=== PATIENT | female | born 1950 | race Caucasian/White ===

== ENCOUNTER 2018-03-23 10:30 | Outpatient (RCR) | payer MEDICARE, SELFPAY | END 2018-05-28 09:42 | LOC: SP 10:30 | PROVIDERS: PCP Family Medicine; Visit Provider Otolaryngology | DX: R49.0 Dysphonia (principal); J04.0 Acute laryngitis; R49.1 Aphonia | CPT/HCPCS: 92507; 92520; 92524 ==

== ENCOUNTER 2019-01-31 00:23 | Observation (INO) | payer MEDICARE, SELFPAY ==
[2019-01-31] VITALS (7 sets, daily range): BP systolic 115–146; BP diastolic 66–94; PULSE 56–67; RESP 14–19; TEMP 36.3–36.9; O2SAT 98–100; BMI 21.9
--- NOTE | 2019-01-31 00:34 | DI.CT.S_ITS ---
PROCEDURE: CT HEAD/BRAIN WO CON INDICATIONS: neurolgic symptoms, dizzy, ataxia TECHNIQUE: Noncontrast 4.5 mm thick angled axial sections acquired from the foramen magnum to the vertex, with coronal and sagittal reformats. For radiation dose reduction, the following was used: automated exposure control, adjustment of mA and/or kV according to patient size. COMPARISON: [facility], MR, BRAIN WITHOUT CONTRAST, 11/29/2009, 10:01. FINDINGS: Image quality: Excellent. CSF spaces: Basal cisterns are patent. No extra-axial fluid collections. The ventricles are symmetric in size and shape. Brain: No intracranial bleeds or masses. There is mild cerebral volume loss for age, with resultant ventricular and sulcal prominence. There are moderate periventricular and deep white matter chronic small vessel ischemic changes. There is intracranial internal carotid artery atherosclerosis. Skull and face: Calvarium and visualized facial bones appear intact, without suspicious lesions. 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 Sinuses: Visualized sinuses and mastoids are clear. IMPRESSION: No acute intracranial disease process. Dictated by: Dinorah Mcconnell MD, PhD on 01/31/2019 at 7:15 Approved by: Dinorah Mcconnell MD, PhD on 01/31/2019 at 7:17
[2019-01-31] MEDS: SODIUM CHLORIDE 0.9% 1,000 ML 150 ML IV (00:45)
--- NOTE | 2019-01-31 00:51 | ED_ITS ---
HPI - Dizziness General Chief Complaint: Nausea/Vomiting/Diarrhea Stated Complaint: vertigo nausea vomiting Time Seen by Provider: 01/31/19 00:26 Source: patient and family Mode of arrival: ambulatory Limitations: no limitations History of Present Illness HPI Narrative: 68-year-old female nonsmoker presents with her for evaluation of dizziness which is largely resolved. The patient was doing laundry earlier and had a sudden onset severe dizziness in which she kept stating to her that she was falling, she states that things were spinning and she was very unsteady. She was quite nauseous and had a few episodes of vomiting. She does have an episode of BPPV in her past which was apparently fixed with the Otterbein-Hallpike maneuver. She denies fever or chills. She has no reported injury and denies MARCIAL or neck pain. She has no other neurologic symptoms. Her dizziness now is more described as lightheadedness. Patient was initially seen by the paramedics on [facility] and had a normal 12 lead EKG. Her exam was non focal and symptoms improved and nearly resolved with zofran and phenergan. MD complaint: dizziness and lightheadedness Onset (ago): hour(s) Timing: sudden onset Description: sense of movement, room spinning and lightheadedness History of similar episodes: Yes History of trauma: No Severity: moderate Relieving factors: remaining still and medication Exacerbating factors: movement and position Associated symptoms: nausea and vomiting Related Data Home Medications Medication Instructions Recorded Confirmed bupropion HCl 300 mg PO QPM 01/31/19 01/31/19 famotidine [Pepcid] 20 mg PO BEDTIME 01/31/19 01/31/19 folic acid 2 mg PO DAILY 01/31/19 01/31/19 levothyroxine 100 mcg PO DAILY 01/31/19 01/31/19 progesterone micronized 100 mg PO QPM 01/31/19 01/31/19 Allergies Allergy/AdvReac Type Severity Reaction Status Date / Time Penicillins Allergy Verified 01/31/19 00:33 Review of Systems Constitutional Denies chills, Denies fever(s), Denies lethargy and Denies weakness Eyes Denies change in vision, Denies eye discharge, Denies irritation and Denies loss of vision ENT Ears, Nose, Mouth, and Throat: Denies change in voice, Reports vertigo, Reports dizziness, Denies neck pain and Denies sore throat Cardiovascular Denies chest pain, Denies irregular heart rhythm, Reports lightheadedness, Denies palpitations, Denies dyspnea, Denies dyspnea on exertion and Denies orthopnea Respiratory Denies cough, Denies dyspnea, Denies dyspnea on exertion and Denies wheezing Gastrointestinal Gastrointestinal: Denies abdominal pain, Denies change in bowel habits, Denies diarrhea, Denies nausea and Denies vomiting Genitourinary Denies hematuria, Denies flank pain, Denies urinary incontinence and Denies urinary urgency Musculoskeletal Denies neck pain Integumentary/Breasts Denies pruritus, Denies erythema, Denies rash and Denies wounds Neurologic Denies confusion, Reports vertigo, Reports dizziness, Denies loss of vision and Denies weakness Psychiatric Denies anxiety, Denies confusion, Denies depression, Denies homicidal ideation and Denies suicidal ideation Endocrine Denies palpitations Hematologic/Lymphatic Denies easy bruising Allergic/Immunologic Denies wheezing PFSH Social History Smoking Status: Never smoker Social History Smoking Status: Never smoker Exam Narrative Exam Narrative: GENERAL: 68-year-old female appears stated age, she does not seem well, visibly fatigued and not at her baseline. A&O x3, GCS 15 HEAD: Atraumatic. Normocephalic. No temporal or scalp tenderness. EYES: Pupils equal round and reactive. Extraocular motions intact. No scleral icterus. No injection or drainage. ENT: Nose without bleeding, purulent drainage or septal hematoma. Throat without erythema, tonsillar hypertrophy or exudate. Uvula midline. Airway patent. NECK: Trachea midline. No JVD or lymphadenopathy. Supple, nontender, no meningeal signs. CARDIOVASCULAR: Regular rate and rhythm without murmurs, gallops, or rubs. RESPIRATORY: Clear to auscultation. Breath sounds equal bilaterally. No wheezes, rales, or rhonchi. GASTROINTESTINAL: Abdomen soft, non-tender, nondistended. No hepato- splenomegaly, or palpable masses. No guarding. EXTREMITIES: No clubbing, cyanosis, or edema. No joint tenderness, effusion, or edema noted. BACK: Nontender without deformity or crepitance. No flank tenderness. NEURO: AOx3. SKIN: No rash or erythema. Initial Vital Signs Initial Vital Signs: Vital Signs Temperature 97.6 F 01/31/19 00:33 Pulse Rate 61 01/31/19 00:33 Respiratory Rate 14 01/31/19 00:33 Blood Pressure 146/94 H 01/31/19 00:33 Pulse Oximetry 100 01/31/19 00:33 Scores NIH Stroke Scale Level of Conciousness: Not alert, but arousable by minor stim to obey, answer or respond Ask month/age: Answers both questions correctly. Open/close eyes, close hand: Performs both tasks correctly Best gaze horizontal: Normal Visual leija: No visual loss Facial palsy: Normal symetrical movement Left arm drift: No drift for full 10 sec Right arm drift: No drift for full 10 sec Left leg drift: No drift for full 10 sec Right leg drift: No drift for full 10 sec Limb ataxia: Absent Sensory on face/arms/legs: Normal, no sensory loss Best language: No aphasia, normal Dysarthria: Normal Extinction or inattention: No abnormality Total NIH Stroke scale score: 1 Course Orders Ordered: ED Orders 01/31/19 00:32 Basic Metabolic Panel Stat Ethanol (ETOH) Stat Troponin I Stat 01/31/19 00:34 CT head/brain wo con Stat EKG-12 Lead Stat 01/31/19 00:51 Complete Blood Count AUTO DIFF Stat Partial Thromboplastin Time Stat Prothrombin Time INR Stat 01/31/19 01:31 Urine Drug Screen, Rapid Stat Urine Microscopic Stat Sodium Chloride (Normal Saline 0.9%) 1,000 mls @ 150 mls/hr IV CONT LY Last Admin: 01/31/19 00:45 Dose: 150 mls/hr Discontinued Medications Aspirin (Aspirin Chew) 324 mg PO NOW ONE Stop: 01/31/19 02:39 Last Admin: 01/31/19 02:45 Dose: 324 mg Consultations Consultation #1: hospitalist happy to accept Vital Signs - 8 hr 01/31/19 00:33 01/31/19 02:10 01/31/19 03:00 Temperature 97.6 F Pulse Rate 61 65 Pulse Rate [Orthostatic Lying] 59 L Pulse Rate [Orthostatic Sitting] 66 Pulse Rate [Orthostatic Standing] 58 L Respiratory Rate 14 17 Blood Pressure 146/94 H Blood Pressure [Left Arm] 125/75 Blood Pressure [Orthostatic Lying] 132/74 Blood Pressure [Orthostatic Sitting] 133/75 Blood Pressure [Orthostatic Standing] 123/67 Pulse Oximetry 100 100 MDM - Dizziness Lab Data Result diagrams: 01/31/19 00:51 01/31/19 00:32 Lab Results 01/31/19 01/31/19 01/31/19 Range/Units 00:32 00:32 00:51 WBC 8.9 (4.5-11.0) X10^3/uL RBC 4.22 (4.0-5.2) X10^6/uL Hgb 11.3 L (12.0-16.0) g/dL Hct 34.5 L (36-46) % MCV 81.7 (80-100) fL MCH 26.7 (26-34) PG MCHC 32.6 (30-36) % RDW 17.7 H (11.6-14.8) % Plt Count 405 H (150-400) X10^3/uL Neut % (Auto) 82.3 H (50-75) % Lymph % (Auto) 13.0 L (25-40) % [place] % (Auto) 3.7 (3-14) % Eos % (Auto) 0.6 L (2-4) % Baso % (Auto) 0.4 (0-2) % Neut # (Auto) 7300 H (8065-0123) /uL Lymph # (Auto) 1200 (8349-5227) /uL [place] # (Auto) 300 (0-900) /uL Eos # (Auto) 100 (0-450) /uL Baso # (Auto) 0 (0-100) /uL PT (10.1-12.7) SECONDS INR (0.9-1.3) APTT (26.4-36.2) SECONDS Sodium 138 (137-145) mmol/L Potassium 4.0 (3.4-5.1) mmol/L Chloride 101 (98-107) mmol/L Carbon Dioxide 26 (22-32) mmol/L BUN 21 H (7-17) mg/dL Creatinine 0.90 (0.52-1.04) mg/dL Estimated GFR > 60.0 (>60) mL/min BUN/Creatinine Ratio 23.3 H (6-22) Glucose 113 H (80-110) mg/dL Calcium 9.3 (8.4-10.2) mg/dL Troponin I < 0.012 (0.01-0.034) ng/mL Urine RBC (0-5/HPF) Urine WBC (0-5/HPF) Ur Squamous Epith Cells (0-5/HPF) Urine Bacteria (None) Ur Culture Indicated? Urine Opiates Screen (Negative) Ur Oxycodone Screen (Negative) Urine Methadone Screen (Negative) Ur Barbiturates Screen (Negative) U Tricyclic Antidepress (Negative) Ur Phencyclidine Scrn (Negative) Ur Amphetamines Screen (Negative) U Methamphetamines Scrn (Negative) Ur MDMA Scrn (Ecstasy) (Negative) U Benzodiazepines Scrn (Negative) Urine Cocaine Screen (Negative) U Marijuana (THC) Screen (Negative) Ethyl Alcohol < 10 mg/dL 01/31/19 01/31/19 01/31/19 Range/Units 00:51 01:31 01:31 WBC (4.5-11.0) X10^3/uL RBC (4.0-5.2) X10^6/uL Hgb (12.0-16.0) g/dL Hct (36-46) % MCV (80-100) fL MCH (26-34) PG MCHC (30-36) % RDW (11.6-14.8) % Plt Count (150-400) X10^3/uL Neut % (Auto) (50-75) % Lymph % (Auto) (25-40) % [place] % (Auto) (3-14) % Eos % (Auto) (2-4) % Baso % (Auto) (0-2) % Neut # (Auto) (3584-8407) /uL Lymph # (Auto) (4961-4786) /uL [place] # (Auto) (0-900) /uL Eos # (Auto) (0-450) /uL Baso # (Auto) (0-100) /uL PT 13.1 H (10.1-12.7) SECONDS INR 1.1 (0.9-1.3) APTT 38 H (26.4-36.2) SECONDS Sodium (137-145) mmol/L Potassium (3.4-5.1) mmol/L Chloride (98-107) mmol/L Carbon Dioxide (22-32) mmol/L BUN (7-17) mg/dL Creatinine (0.52-1.04) mg/dL Estimated GFR (>60) mL/min BUN/Creatinine Ratio (6-22) Glucose (80-110) mg/dL Calcium (8.4-10.2) mg/dL Troponin I (0.01-0.034) ng/mL Urine RBC None seen (0-5/HPF) Urine WBC 0-1/hpf (0-5/HPF) Ur Squamous Epith Cells 0-1 /hpf (0-5/HPF) Urine Bacteria None seen (None) Ur Culture Indicated? Cult not indicated Urine Opiates Screen Negative (Negative) Ur Oxycodone Screen Negative (Negative) Urine Methadone Screen Negative (Negative) Ur Barbiturates Screen Negative (Negative) U Tricyclic Antidepress Negative (Negative) Ur Phencyclidine Scrn Negative (Negative) Ur Amphetamines Screen Negative (Negative) U Methamphetamines Scrn Negative (Negative) Ur MDMA Scrn (Ecstasy) Negative (Negative) U Benzodiazepines Scrn Negative (Negative) Urine Cocaine Screen Negative (Negative) U Marijuana (THC) Screen Negative (Negative) Ethyl Alcohol mg/dL Urine Dip Bedside Urine Glucose Negative Bedside Urine Bilirubin - Negative Bedside Urine Ketone +/- 5 Urine Specific [place] 1.010 Bedside Urine Occult Blood - Negative Bedside Urine pH 7.0 Bedside Urine Protein - Negative Bedside Urine Urobilinogen - Negative Bedside Urine Nitrite - Negative Bedside Urine Leukocytes ++ 125 Esterase MDM Narrative Medical decision making narrative: Multiple etiologies of patient's dizziness considered. Initially she had what sounds like classic BPPV with severe room- spinning type vertigo which was worse with movement and improved with rest. These symptoms seemed to have improved with the use of antihistamines as administered by on scene medics. Patient denies focal findings, signs of UTI such as dysuria, frequency, or urgency. Her CT is normal and NIHSS is at baseline. HINTS exam performed and not classically demonstrating peripheral vertigo. Patient is not at her baseline and still complaining of a vague dizziness and unsteadiness despite no measureable ataxia. Patient requires hospitalization to further characterize her dizziness and rule out stroke as a cause. CTA not ordered as patient does not have evidence of large vessel occlusion and MRI is the more appropriate study. Finally, no meclizine given as she was given multiple antihistamines earlier which seemed to help and she no longer has classical peripheral vertigo Discharge Plan Departure Admit Date/Time: 01/31/19 02:38 Admit Provider: Xiang Frances
[2019-01-31 00:59] LABS: Add Manual Diff / Slide Review NO; Basophils Absolute Auto 0 /uL (0-100); Basophils Percent Auto 0.4 % (0-2); Eosinophils Absolute Auto 100 /uL (0-450); Eosinophils Percent Auto 0.6 % (2-4); Hematocrit 34.5 % (36-46); Hemoglobin 11.3 g/dL (12.0-16.0); Lymphocytes Absolute Auto 1200 /uL (1100-4500); Mean Corpuscular HGB Conc 32.6 % (30-36); Mean Corpuscular Hemoglobin 26.7 PG (26-34); Mean Corpuscular Volume 81.7 fL (80-100); Monocytes Absolute Auto 300 /uL (0-900); Monocytes Percent Auto 3.7 % (3-14); Neutrophils Absolute Auto 7300 /uL (1500-7000); Neutrophils Percent Auto 82.3 % (50-75); Platelet Count 405 X10^3/uL (150-400); Red Blood Cell Count 4.22 X10^6/uL (4.0-5.2); Red Cell Distribution Width 17.7 % (11.6-14.8); White Blood Cell Count 8.9 X10^3/uL (4.5-11.0)
[2019-01-31 01:04] LABS: INR 1.1 (0.9-1.3); Prothrombin Time 13.1 SECONDS (10.1-12.7)
[2019-01-31 01:07] LABS: PTT Partial Thromboplastin Tim 38 SECONDS (26.4-36.2)
[2019-01-31 01:09] LABS: Ethanol (ETOH) < 10 mg/dL
[2019-01-31 01:10] LABS: BUN Creatinine Ratio 23.3 (6-22); Blood Urea Nitrogen 21 mg/dL (7-17); Calcium 9.3 mg/dL (8.4-10.2); Carbon Dioxide 26 mmol/L (22-32); Chloride 101 mmol/L (98-107); Estimated Glomerular Filt Rate > 60.0 mL/min (>60); Glucose 113 mg/dL (80-110); HEMOLYSIS 22 (0-50); Sodium 138 mmol/L (137-145)
[2019-01-31 01:25] LABS: Troponin I < 0.012 ng/mL (0.01-0.034)
--- NOTE | 2019-01-31 01:41 | PC.NURSE ---
[facility] stated the she felt a little' dizzy but her lightheaded feeling was much better than earlier today when the EMT's had to help her to the restroom.
[2019-01-31 01:44] LABS: Bacteria Urine None Seen; RBC Urine None Seen (0-5/HPF)
[2019-01-31 01:49] LABS: Urine Amphetamines Negative (Negative); Urine Barbiturates Negative (Negative); Urine Benzodiazepines Negative (Negative); Urine Cocaine Negative (Negative); Urine MDMA Negative (Negative); Urine Methadone Negative (Negative); Urine Methamphetamines Negative (Negative); Urine Morphine/Opi cutoff 2000 Negative (Negative); Urine Oxycodone Negative (Negative); Urine Phencyclidine Negative (Negative); Urine Tetrahydrocannabinol Negative (Negative); Urine Tricyclic Antidepressant Negative (Negative)
[2019-01-31 01:53] LABS: Culture Indicated Urine Cult Not Indicated; Squamous Epithelial Cell Urine 0-1 /HPF (0-5/HPF); WBC Urine 0-1/HPF (0-5/HPF)
[2019-01-31] MEDS: ASPIRIN 81 MG TAB 324 MG PO (02:45)
--- NOTE | 2019-01-31 03:26 | DI.MRI.S_ITS ---
PROCEDURE: MR STROKE Pre- and post-contrast brain MRI, non-contrast brain MR angiogram, pre- and postcontrast neck MR angiogram INDICATIONS: Dizziness, disequilibrium, rule out TIA TECHNIQUE: Brain: Noncontrast axial T1 spin echo, axial T2 fast spin echo, sagittal and axial FLAIR, coronal T2 fast spin echo, axial gradient echo, axial diffusion and ADC through the brain. After the administration of contrast, axial 3D VIBE of the cranial vasculature and brain. Brain MRA: Non-contrast 3-D time of flight MR angiogram, with multiple vvnlhwq-szngevpqx-qzrswxkvvj (MIP) reformats performed. Neck MRA: Axial and sagittal TruFISP through the neck. Coronal dynamic MR angiogram during administration of contrast in the arterial and venous phases, with 3-dimenstional tmfikki-zfhvsdlwz-xlqycrkcgd (MIP) reformats constructed from subtraction images. COMPARISON: [facility], MR, BRAIN WITHOUT CONTRAST, 11/29/2009, 10:01. [facility], CT, CT HEAD/BRAIN WO CON, 01/31/2019, 1:08. FINDINGS: Image quality: Excellent. BRAIN: CSF spaces: Ventricles are normal in size and shape. Basal cisterns are patent. No extra-axial fluid collections. Brain: No intracranial bleeds or mass effects. Bo-white matter interface is normal. Diffusion weighted images show no acute ischemic insults. Chronic, small, lacunar infarct noted in the left cerebellar hemisphere. There are moderate periventricular and subcortical white matter chronic much lesser ischemic changes. There is mild, diffuse removal and loss. Brainstem appears normal. Normal intravascular flow voids are present. No abnormal intracranial enhancement. Skull and face: Calvarial marrow signal is normal. Orbits appear normal. Sinuses: Sinuses and mastoids are clear. BRAIN MR ANGIOGRAM: Anterior circulation: Intracranial internal carotid arteries are normal in size and enhancement. The flow within the paired anterior cerebral arteries is normal and symmetric. The flow within the middle cerebral arteries is normal and symmetric. The anterior communicating artery is seen. No stenoses, occlusions, or aneurysms. Posterior circulation: The visualized portions of the vertebral arteries demonstrate normal caliber, and join to form a normal appearing basilar artery. The flow within the posterior cerebral arteries is normal and symmetric. 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 No stenoses, occlusions, or aneurysms. NECK MR ANGIOGRAM: Carotids: Great vessels demonstrate a conventional anatomy as they arise from the aortic arch. The origins of the common carotid arteries appear patent. The calibers and courses of both common carotid arteries are normal. The bifurcation regions appear normal bilaterally. The internal carotid arteries demonstrate normal course and caliber. Posterior circulation: The origins of the vertebral arteries appear patent. More superior portions of both vertebral arteries demonstrate normal course and caliber, and join to form a normal appearing basilar artery. Miscellaneous: Subclavian arteries appear patent. Pre-contrast images through the neck show no soft tissue abnormalities. IMPRESSION: BRAIN MRI: 1. No acute intracranial disease process. 2. No areas of acute infarction. 3. Chronic, small left cerebellar hemisphere lacunar infarct. 4. Mild, diffuse cerebral volume loss. 5. Moderate periventricular and subcortical white matter chronic microvascular ischemic changes. 6. No abnormal intracranial mass or suspicious postcontrast enhancement. BRAIN MR ANGIOGRAM: Negative examination. NECK MR ANGIOGRAM: Negative examination. Dictated by: Dinorah Mcconnell MD, PhD on 01/31/2019 at 12:01 Approved by: Dinorah Mcconnell MD, PhD on 01/31/2019 at 12:08
--- NOTE | 2019-01-31 03:36 | DI.ECHO.S_ITS ---
[facility]---------+ [facility] +---------+ : : [address] [place] : : : : [id number] : : : : Phone: [phone] Echocardiogram Report + + :Name: GABI LUNA Study Date: 01/31/2019 Height: 63 in : :[facility] Weight: 120 lb : : Gender: Female BSA: 1.6 m2 : :: 1950 Age: 68 yrs BP: 135/78 mmHg: :Reason For Study: TIA : : Performed By: Ivett Estrada : :Referring: VANESSA BLACK : + + Interpretation Summary Injection of contrast documented no interatrial shunt. Left ventricular wall thickness is at the upper limits of normal. There are no obvious focal wall motion abnormalities noted but poor endocardial definition reduces the sensitivity for the detection of such. The right ventricle grossly appears normal in size with probable normal systolic function. The right ventricular systolic pressure is estimated to be at least 24 mmHg based on an estimated right atrial pressure of 3 mm Hg. Both atria are normal in size. No hemodynamically significant valvular abnormalities. No prior echo for comparison. Procedure: A two-dimensional transthoracic echocardiogram with color flow and Doppler was performed. The study quality was technically adequate. There is no prior echocardiogram noted for this patient. The patient was in normal sinus rhythm during the exam. Left Ventricle: Left ventricular wall thickness is at the upper limits of normal. The ejection fraction is estimated to be 60-65%. The left ventricular ejection fraction is normal. There are no obvious focal wall motion abnormalities noted but poor endocardial definition reduces the sensitivity for the detection of such. Diastolic parameters suggest a relaxation abnormality of the left ventricle, consistent with probable normal filling pressures. Right Ventricle: The right ventricle grossly appears normal in size with probable normal systolic function. Atria: The left atrial size is normal. Both atria are normal in size. Right atrial size is normal. Injection of contrast documented no interatrial shunt. Mitral Valve: The mitral valve leaflets are mildly calcified. There is no mitral regurgitation noted. Aortic Valve: The aortic valve is trileaflet. The aortic valve opens well. There is no aortic valve stenosis. No aortic regurgitation is present. Tricuspid Valve: The tricuspid valve leaflets are thin and pliable. There is mild tricuspid regurgitation. The right ventricular systolic pressure is estimated to be at least 24 mmHg based on an estimated right atrial pressure of 3 mm Hg. Pulmonic Valve: The pulmonic valve is not well seen, but is grossly normal. There is no pulmonic valvular regurgitation. Great Vessels: The aortic root is normal size. The dimensions of the ascending aorta are normal. The aortic arch is normal in size. The IVC is of normal diameter and collapses greater than 50% with a sniff. This suggests a low right atrial pressure of 3 mm Hg. Pericardium/ Pleura There is no pericardial effusion. There is no pleural effusion. MMode/2D Measurements & Calculations LVIDd: 3.8 cm Ao root diam: 3.4 cm LVIDs: 2.3 cm Aortic Jxn: 2.2 cm FS: 38.9 % asc Aorta Diam: 2.9 cm IVSd: 1.1 cm Ao Arch Diam (Prox Trans): 2.9 cm LVPWd: 0.82 cm LV weeks. diameter/BSA (cm/m^2): 2.4 LV sys. diameter/BSA (cm/m^2): 1.5 LA dimension: 3.3 cm RA long axis: 4.0 cm LA A2 area: 15.7 cm2 RA area: 13.3 cm2 LA A4 area: 14.4 cm2 RA vol: 37.7 ml LA length (vol): 4.3 cm RA : 24.2 ml/m2 LA vol: 44.8 ml IVC diam: 1.5 cm LA vol index: 28.8 ml/m2 RVDd major: 4.7 cm RVD1 (basal): 3.3 cm RVD2 (mid): 2.9 cm Doppler Measurements & Calculations Ao V2 max: 129.5 cm/sec MV E max susu: 75.8 cm/sec Ao V2 mean: 87.9 cm/sec MV A max susu: 91.6 cm/sec Ao max P.7 mmHg MV E/A: 0.83 Ao mean P.6 mmHg MV dec time: 0.23 sec Ao V2 VTI: 30.2 cm MV P1/2t: 68.9 msec TR max susu: 231.1 cm/sec MV P1/2t max susu: 71.9 cm/sec TR max P.4 mmHg MVA(P1/2t): 3.2 cm2 PA V2 max: 76.3 cm/sec PA V2 mean: 54.1 cm/sec PA mean P.3 mmHg PA Accel Time: 0.19 sec Electronically signed by: Tacos Bolton M.D. on Reading Physician:01/31/2019 02:48 PM
--- NOTE | 2019-01-31 03:51 | P.HP_ITS ---
History of Present Illness Date Patient Seen: 01/31/19 Time Patient Seen: 03:02 Chief complaint: vertigo nausea vomiting Narrative: Ms. Tata Mendez is a 60-year-old female patient with history significant for vertigo, hypothyroidism post thyroidectomy and rheumatoid arthritis on methotrexate who experienced a sudden onset of profound dizziness yesterday. The patient states she was doing laundry and had a sudden onset of vertigo, dizziness and sensation that she was going to fall even when laying down. The patient has had previous benign paroxysmal positional vertigo but indicates that this episode was much more pronounced and has lasted longer and is associated with nausea vomiting. The patient took a Zofran that she had but indicates she threw it. The patient was treated on [facility] receiving multiple medications including Phenergan and Zofran without resolution of her symptoms. She does indicate that the dizziness is less with her eyes closed. Patient has associated symptoms mild headache and weakness. She denies recent illness fevers or chills. She has had visual changes with prior episodes of vertigo but none with this occurrence. She denies chest pain or palpitations, shortness of breath cough for wheezing. The patient does note that she had a cardiac workup 2-3 years ago related to bradycardia and hypotension which the patient reports there were no significant findings. She has had no abdominal pain, constipation or diarrhea. She reports no come planes of urinary urgency frequency or burning and no hematuria. She does have significant rheumatoid arthritis with bilateral hand deformities and has undergone bilateral total knee replacements. The patient states she uses no assistive devices at home. Upon arrival to the emergency room patient found to be afebrile with a temperature of 97.6?, blood pressure of 125/75, heart rate of 65, respirations 17 and saturating 100% on room air. In the ER the patient had a CT completed which shows no acute bleeding moderate atrophy and no acute intracranial changes. It does note however severe right TMJ arthritis. She also had an EKG completed which reveals sinus rhythm at 63 without ectopy or block, ischemia or myocardial infarction. On laboratory analysis she has white count of 8.9, hemog lobin 11.3 and hematocrit of 34.5 and platelets of 105. Her electrolytes are within normal limits, she has a BUN of 21 and creatinine of 0.9 for an EGFR of greater than 60 a BUN creatinine ratio 23.3. A coagulation she has mildly elevated PT of 13.1 and INR 1.1 elevated PTT of 38. The patient is admitted to the hospital related to an atypical presentation of her previous existing BPPV with equivocal neurological findings and rule out TIA. Patient History Medical History (Updated 01/31/19 @ 04:16 by LINDEN Leon) Acquired hypothyroidism (Acute) Benign paroxysmal positional vertigo (Acute) Lumbar disc herniation (Acute) Rheumatoid arthritis (Acute) Surgical History (Updated 01/31/19 @ 04:02 by LINDEN Leon) H/O right breast biopsy (Acute) History of bilateral knee replacement (Acute) History of hand surgery (Acute) History of thyroidectomy (Acute) Family History (Updated 01/31/19 @ 04:04 by LINDEN Leon) Father Stroke Mother Stroke Spinal stenosis Brother Stroke Sister Anxiety and depression PTSD (post-traumatic stress disorder) Social History household members: spouse Smoking Status: Never smoker Family & Social History Safety & Behavioral: Feels Safe in Current Yes Environment Been Physically Hurt or No Threatened By a Person Tobacco & Substance use: Smoking Status Never smoker alcohol intake frequency 0-2 drinks per day Substance Use Type does not use Comment: The patient resides on [facility] in a single family home with her to whom she has been for 46 years. Her parents are both her father had a history of strokes as does her mother. She has 2 brothers 1 of which has had a stroke and the other she describes is relatively healthy. She has 1 sister with depression anxiety and PTSD. She has had no children. Smoking: The patient denies having ever smoked. Alcohol: The patient denies alcohol consumption. Substance use: The patient endorses use of CBD ointment on her hands. Advanced directives: She has advanced directives. In direct discussion with the patient she wishes to be a FULL CODE and designates her to be surrogate decision maker. Meds Home Medications Medication Instructions Recorded Confirmed Type bupropion HCl 300 mg PO QPM 01/31/19 01/31/19 History estradiol 1 patch TOPICAL WEEKLY 01/31/19 01/31/19 History famotidine [Pepcid] 20 mg PO BEDTIME 01/31/19 01/31/19 History folic acid 2 mg PO DAILY 01/31/19 01/31/19 History levothyroxine 100 mcg PO DAILY 01/31/19 01/31/19 History progesterone micronized 100 mg PO QPM 01/31/19 01/31/19 History Allergies Allergy/AdvReac Type Severity Reaction Status Date / Time Penicillins Allergy Verified 01/31/19 00:33 Review of Systems Review of Systems All systems reviewed & are unremarkable except as noted in HPI and below Exam Vital Signs (past 8 hours): - 01/31/19 00:33 01/31/19 02:10 01/31/19 03:00 Temperature 97.6 F Pulse Rate 61 65 Pulse Rate [Orthostatic Lying] 59 L Pulse Rate [Orthostatic Sitting] 66 Pulse Rate [Orthostatic Standing] 58 L Respiratory Rate 14 17 Blood Pressure 146/94 H Blood Pressure [Left Arm] 125/75 Blood Pressure [Orthostatic Lying] 132/74 Blood Pressure [Orthostatic Sitting] 133/75 Blood Pressure [Orthostatic Standing] 123/67 Pulse Oximetry 100 100 Oxygen Delivery Method Room Air Narrative Exam Narrative: GENERAL APPEARANCE: well developed, well nourished, drowsy but responsive. HEAD: Symmetrical facies, atraumatic EYES: No ptosis, pupils equal, round, reactive to light and accommodation, sclera non-icteric, extraocular movement intact with slight bilateral nystagmus, no visual field deficits. EARS: normal external structures, no ear pain NOSE: sinuses non tender to percussion, no rhinorrhea ORAL CAVITY: mucosa moist without lesions or exudate, patient has own dentition, palate normal, tongue in midline. THROAT: Posterior pharynx without erythema or exudate. NECK/THYROID: neck supple, no jugular venous distention, no carotid bruit, trachea midline. LYMPH NODES: no cervical or supraclavicular lymphadenopathy. SKIN: warm and dry, no suspicious lesions, no rashes, good turgor. HEART: regular rate and rhythm, S1-S2, 1/6 systolic murmur, no rubs or gallops, brisk capillary refill, no edema LUNGS: clear to auscultation bilaterally, no coarseness crackles or wheezing, no cough present CHEST: Symmetrical movement, no accessory muscle use, no pain to AP and lateral compression. BACK: Nontender, no back pain with straight leg raise. ABDOMEN: Soft, no distention, mild abdominal wall tenderness to palpation, no guarding or peritoneal signs, no organomegaly, active bowel tones. EXTREMITIES: moves all extremities, strength is 5/5 and symmetrical, bilateral hand deformities with Heberden's and Lisa's nodules, NEUROLOGIC: Lethargic, GCS 14, responsive to verbal stimulus and follows commands, oriented x4, neuropathy left great toe. PSYCH: alert, cognitive function intact, soft-spoken, appropriate with stable behavior Objective Labs Result Diagrams: 01/31/19 00:51 01/31/19 00:32 Labs: Laboratory Results - last 24 hr 01/31/19 01/31/19 01/31/19 00:32 00:32 00:51 WBC 8.9 RBC 4.22 Hgb 11.3 L Hct 34.5 L MCV 81.7 MCH 26.7 MCHC 32.6 RDW 17.7 H Plt Count 405 H Neut % (Auto) 82.3 H Lymph % (Auto) 13.0 L [place] % (Auto) 3.7 Eos % (Auto) 0.6 L Baso % (Auto) 0.4 Neut # (Auto) 7300 H Lymph # (Auto) 1200 [place] # (Auto) 300 Eos # (Auto) 100 Baso # (Auto) 0 PT INR APTT Sodium 138 Potassium 4.0 Chloride 101 Carbon Dioxide 26 BUN 21 H Creatinine 0.90 Estimated GFR > 60.0 BUN/Creatinine Ratio 23.3 H Glucose 113 H Calcium 9.3 Troponin I < 0.012 Urine RBC Urine WBC Ur Squamous Epith Cells Urine Bacteria Ur Culture Indicated? Urine Opiates Screen Ur Oxycodone Screen Urine Methadone Screen Ur Barbiturates Screen U Tricyclic Antidepress Ur Phencyclidine Scrn Ur Amphetamines Screen U Methamphetamines Scrn Ur MDMA Scrn (Ecstasy) U Benzodiazepines Scrn Urine Cocaine Screen U Marijuana (THC) Screen Ethyl Alcohol < 10 01/31/19 01/31/19 01/31/19 00:51 01:31 01:31 WBC RBC Hgb Hct MCV MCH MCHC RDW Plt Count Neut % (Auto) Lymph % (Auto) [place] % (Auto) Eos % (Auto) Baso % (Auto) Neut # (Auto) Lymph # (Auto) [place] # (Auto) Eos # (Auto) Baso # (Auto) PT 13.1 H INR 1.1 APTT 38 H Sodium Potassium Chloride Carbon Dioxide BUN Creatinine Estimated GFR BUN/Creatinine Ratio Glucose Calcium Troponin I Urine RBC None seen Urine WBC 0-1/hpf Ur Squamous Epith Cells 0-1 /hpf Urine Bacteria None seen Ur Culture Indicated? Cult not indicated Urine Opiates Screen Negative Ur Oxycodone Screen Negative Urine Methadone Screen Negative Ur Barbiturates Screen Negative U Tricyclic Antidepress Negative Ur Phencyclidine Scrn Negative Ur Amphetamines Screen Negative U Methamphetamines Scrn Negative Ur MDMA Scrn (Ecstasy) Negative U Benzodiazepines Scrn Negative Urine Cocaine Screen Negative U Marijuana (THC) Screen Negative Ethyl Alcohol Assessment & Plan Assessment & Plan narrative: This is a 68-year-old female patient who was admitted to the hospital to rule out TIA related to persistent severe vertigo, nausea vomiting which is a change in character from her prior history of BPPV. 1. Acute vertigo and disequilibrium, possible TIA, present on admission. -patient with history of BPPV but presentation is markedly different than previous episodes. On labs patient is mildly dehydrated. -risk factors include strong family history of cerebrovascular disease with mother father and brother having strokes, using hormone replacement therapy was tried all and progesterone but does not have diabetes and has never smoked. -HINTS evaluation with mild bilateral nystagmus, negative head and colds or vertical skew. CT scan is negative for intracranial process, severe right TMJ osteoarthritis. -patient received an aspirin 324 mg in the ER, will continue aspirin 81 mg kaylee y. -Zofran 4 mg every 6 hours as needed for nausea vomiting. -will obtain lipid panel -nursing bedside swallow evaluation, PT and OT to evaluate and treat, speech therapy to evaluate. -MR stroke protocol, prior history of cardiac workup 2-3 years ago for repored bradycardia and hypertension, echocardiogram 2. Chronic benign paroxysmal positional vertigo, active -patient takes no routine medications [place] per ED MD report. No present complaint of nausea vomiting. -patient reported symptoms of falling while lying still, complains of dizziness now. -meclizine 25 mg every 8 hours as needed for vertigo. 3. Chronic acquired hypothyroidism, active. -will continue home regimen of levothyroxine 100 mcg daily -will check TSH with reflex to T4. The patient endorses a history of BPPV however this is an atypical presentation in intensity and duration. Patient being evaluated for TIA and is admitted as an observation patient. Expected length of stay is less than 2 midnights. Time Spent With Patient Time with patient: 25 - 35 minutes Scores GCS Carl coma scale eye opening: To sound Carl coma scale verbal response: Orientated [place] coma scale motor response: Obey commands Carl coma scale total score: 14 ABCD2 Age >= 60 years: yes Initial BP. Either SBP >= 140 or DBP >= 90.: no Clinical features of the TIA: other symptoms Duration of symptoms: >= 60 minutes History of diabetes: no ABCD2 Score: 3 NIHSS Level of Conciousness: Not alert, but arousable by minor stim to obey, answer or respond Ask month/age: Answers both questions correctly. Open/close eyes, close hand: Performs both tasks correctly Best gaze horizontal: Normal Visual leija: No visual loss Facial palsy: Normal symetrical movement Left arm drift: No drift for full 10 sec Right arm drift: No drift for full 10 sec Left leg drift: No drift for full 5 sec Right leg drift: No drift for full 5 sec Limb ataxia: Absent Sensory on face/arms/legs: Normal, no sensory loss Best language: No aphasia, normal Dysarthria: Normal Extinction or inattention: No abnormality Total NIH Stroke scale score: 1
[2019-01-31] MEDS: SODIUM CHLORIDE 0.9% 1,000 ML 125 ML IV (04:17)
--- NOTE | 2019-01-31 04:36 | PC.NURSE ---
Pt arrived to unit from ED with nurse Hameed. A/o x3. Pt ambulated to restroom with slight dizziness. No complaints or pain or nausea since ED. Moderate fall risk for dizziness and weakness, bed alarm set. Oriented patient to unit and call light, pt verbalized understanding. Swallow study performed was negative.
[2019-01-31] MEDS: ONDANSETRON 4 MG/2 ML INJ IV (06:13)
[2019-01-31] MEDS: LEVOTHYROXINE 100 MCG TABLET PO (06:13)
[2019-01-31 06:19] LABS: Cholesterol 155 mg/dL (140-199); HDL Cholesterol 33 mg/dL (40-60); LDL Cholesterol Calculated 98 mg/dL (<100); Triglycerides 120 mg/dL (35-150)
[2019-01-31 06:52] LABS: TSH w/ Reflex to FT4 1.27 uIU/mL (0.47-4.68)
[2019-01-31] MEDS: ACETAMINOPHEN 325 MG TABLET 650 MG PO (09:49)
[2019-01-31] MEDS: ASPIRIN EC 81 MG TABLET PO (09:49)
[2019-01-31] MEDS: ENOXAPARIN 40 MG/0.4 ML SYRINGE SUBCUT (09:49)
--- NOTE | 2019-01-31 10:22 | PT.IPTN ---
Physical Therapy Treatment Note M3 PT-IP Subjective Start: 01/31/19 08:28 Freq: NEEDED Status: Active Protocol: Document 01/31/19 10:21 RS (Rec: 01/31/19 10:22 RS [id number]) Subjective Physical Therapy Visit Type Type Administrative Note Notes Pt going for MRI momentarily, will check back later today.
--- NOTE | 2019-01-31 10:37 | PC.NURSE ---
Day shift: Pt off AC unit for MRI. Return to AC ETA 40 minutes from now (1037).
--- NOTE | 2019-01-31 11:57 | PM.CHAP ---
visit request with patient. She is doing well by her report. She expects her fiberglass autobody repairer to visit this afternoon.
--- NOTE | 2019-01-31 12:05 | PC.NURSE ---
Day shift: Pt back on unit at approx 1145. Pt stated that she tolerated the MRI well.
--- NOTE | 2019-01-31 13:10 | P.DS_ITS ---
History of Present Illness Chief complaint: vertigo nausea vomiting Narrative: Ms. Tata Mendez is a 60-year-old female patient with history significant for vertigo, hypothyroidism post thyroidectomy and rheumatoid arthritis on methotrexate who experienced a sudden onset of profound dizziness yesterday. The patient states she was doing laundry and had a sudden onset of vertigo, dizziness and sensation that she was going to fall even when laying down. The patient has had previous benign paroxysmal positional vertigo but indicates that this episode was much more pronounced and has lasted longer and is associated with nausea vomiting. The patient took a Zofran that she had but indicates she threw it. The patient was treated on [facility] receiving multiple medications including Phenergan and Zofran without resolution of her symptoms. She does indicate that the dizziness is less with her eyes closed. Patient has associated symptoms mild headache and weakness. She denies recent illness fevers or chills. She has had visual changes with prior episodes of vertigo but none with this occurrence. She denies chest pain or palpitations, shortness of breath cough for wheezing. The patient does note that she had a cardiac workup 2-3 years ago related to bradycardia and hypotension which the patient reports there were no significant findings. She has had no abdominal pain, constipation or diarrhea. She reports no come planes of urinary urgency frequency or burning and no hematuria. She does have significant rheumatoid arthritis with bilateral hand deformities and has undergone bilateral total knee replacements. The patient states she uses no assistive devices at home. Upon arrival to the emergency room patient found to be afebrile with a temperature of 97.6?, blood pressure of 125/75, heart rate of 65, respirations 17 and saturating 100% on room air. In the ER the patient had a CT completed which shows no acute bleeding moderate atrophy and no acute intracranial changes. It does note however severe right TMJ arthritis. She also had an EKG completed which reveals sinus rhythm at 63 without ectopy or block, ischemia or myocardial infarction. On laboratory analysis she has white count of 8.9, hemoglobin 11.3 and hematocrit of 34.5 and platelets of 105. Her electrolytes are within normal limits, she has a BUN of 21 and creatinine of 0.9 for an EGFR of greater than 60 a BUN creatinine ratio 23.3. A coagulation she has mildly elevated PT of 13.1 and INR 1.1 elevated PTT of 38. The patient is admitted to the hospital related to an atypical presentation of her previous existing BPPV with equivocal neurological findings and rule out TIA. Discharge Providers Date of admission: 01/31/19 02:38 Discharge Date: 01/31/19 Primary care physician: José Miguel Diego MD Consults: 01/31/19 03:31 Consult to Discharge Planning Routine Comment: Consult to Occupational Therapy Evaluate & Treat Comment: Disequilibrium Physician Instructions: Evaluate and treat Consult to Physical Therapy Evaluate & Treat Comment: Disequilibrium Physician Instructions: Evaluate and Treat 01/31/19 03:37 Consult to Speech Therapy Evaluate & Treat Comment: Sudden onset dizziness, disequilibrium, R/O TIA Physician Instructions: Evaluate and treat 01/31/19 04:03 Consult to Dietitian, Adult Routine Comment: Reason For Exam: Reflected from admin assessment Consult to Pastoral Services Routine Comment: Per pt request Discharge provider: Kwadwo Mane MD Summary Discharge Diagnosis: 1. Acute vertigo, undetermined etiology, resolved 2. Chronic left cerebellar lacunar infarction 3. Chronic microvascular ischemic changes on brain MRI 4. History of benign positional vertigo 5. History of rheumatoid arthritis 6. Current hormone replacement therapy 7. Heart murmur Hospital Course: Patient was admitted due to atypical presentation of vertigo different from her previous episodes of BPPV. Her symptoms have resolved except for a mild dull global headache. Her brain MRI stroke protocol did not reveal any acute intracranial process. 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 She has moderate periventricular and subcortical white matter chronic microvascular ischemic changes. The brain and neck MR angiogram were normal. Her total cholesterol is 155, LDL 98, triglycerides 120, HDL 33. Her blood pressures have been normal range, last BP 120/70. She was started on 81 mg daily aspirin and atorvastatin 20 mg HS based on appearance of the chronic left cerebellar lacunar infarction on MRI. It is not clear whether her presenting symptom of vertigo was due to BPPV versus acute cerebral ischemia. She has a faint heart murmur on exam, possibly aortic sclerosis. A transthoracic echo will be completed prior to discharge but patient is informed to follow up on echo report with her PCP. Patient is also informed to discuss with PCP whether she might benefit from having a 30 day collection development librarian to rule out transient episodes of atrial fibrillation. Status at Discharge Cognitive/behavioral status at discharge: oriented Functional status at discharge: independent ambulation Overall status at discharge: patient is back to baseline Exam Vital Signs (past 8 hours): - 01/31/19 07:43 01/31/19 08:50 01/31/19 12:04 Temperature 98.4 F 97.6 F Pulse Rate 56 L 63 Respiratory Rate 16 14 Blood Pressure 115/66 120/70 Pulse Oximetry 98 98 98 Oxygen Delivery Method Room Air Oxygen Flow Rate 0 Objective Labs Result Diagrams: 01/31/19 00:51 01/31/19 00:32 Labs: Laboratory Results - last 24 hr 01/31/19 01/31/19 01/31/19 00:32 00:32 00:51 WBC 8.9 RBC 4.22 Hgb 11.3 L Hct 34.5 L MCV 81.7 MCH 26.7 MCHC 32.6 RDW 17.7 H Plt Count 405 H Neut % (Auto) 82.3 H Lymph % (Auto) 13.0 L [place] % (Auto) 3.7 Eos % (Auto) 0.6 L Baso % (Auto) 0.4 Neut # (Auto) 7300 H Lymph # (Auto) 1200 [place] # (Auto) 300 Eos # (Auto) 100 Baso # (Auto) 0 PT INR APTT Sodium 138 Potassium 4.0 Chloride 101 Carbon Dioxide 26 BUN 21 H Creatinine 0.90 Estimated GFR > 60.0 BUN/Creatinine Ratio 23.3 H Glucose 113 H Calcium 9.3 Troponin I < 0.012 Triglycerides Cholesterol LDL Cholesterol, Calc HDL Cholesterol TSH Urine RBC Urine WBC Ur Squamous Epith Cells Urine Bacteria Ur Culture Indicated? Urine Opiates Screen Ur Oxycodone Screen Urine Methadone Screen Ur Barbiturates Screen U Tricyclic Antidepress Ur Phencyclidine Scrn Ur Amphetamines Screen U Methamphetamines Scrn Ur MDMA Scrn (Ecstasy) U Benzodiazepines Scrn Urine Cocaine Screen U Marijuana (THC) Screen Ethyl Alcohol < 10 01/31/19 01/31/19 01/31/19 00:51 01:31 01:31 WBC RBC Hgb Hct MCV MCH MCHC RDW Plt Count Neut % (Auto) Lymph % (Auto) [place] % (Auto) Eos % (Auto) Baso % (Auto) Neut # (Auto) Lymph # (Auto) [place] # (Auto) Eos # (Auto) Baso # (Auto) PT 13.1 H INR 1.1 APTT 38 H Sodium Potassium Chloride Carbon Dioxide BUN Creatinine Estimated GFR BUN/Creatinine Ratio Glucose Calcium Troponin I Triglycerides Cholesterol LDL Cholesterol, Calc HDL Cholesterol TSH Urine RBC None seen Urine WBC 0-1/hpf Ur Squamous Epith Cells 0-1 /hpf Urine Bacteria None seen Ur Culture Indicated? Cult not indicated Urine Opiates Screen Negative Ur Oxycodone Screen Negative Urine Methadone Screen Negative Ur Barbiturates Screen Negative U Tricyclic Antidepress Negative Ur Phencyclidine Scrn Negative Ur Amphetamines Screen Negative U Methamphetamines Scrn Negative Ur MDMA Scrn (Ecstasy) Negative U Benzodiazepines Scrn Negative Urine Cocaine Screen Negative U Marijuana (THC) Screen Negative Ethyl Alcohol 01/31/19 01/31/19 05:40 05:40 WBC RBC Hgb Hct MCV MCH MCHC RDW Plt Count Neut % (Auto) Lymph % (Auto) [place] % (Auto) Eos % (Auto) Baso % (Auto) Neut # (Auto) Lymph # (Auto) [place] # (Auto) Eos # (Auto) Baso # (Auto) PT INR APTT Sodium Potassium Chloride Carbon Dioxide BUN Creatinine Estimated GFR BUN/Creatinine Ratio Glucose Calcium Troponin I Triglycerides 120 Cholesterol 155 LDL Cholesterol, Calc 98 HDL Cholesterol 33 L TSH 1.27 Urine RBC Urine WBC Ur Squamous Epith Cells Urine Bacteria Ur Culture Indicated? Urine Opiates Screen Ur Oxycodone Screen Urine Methadone Screen Ur Barbiturates Screen U Tricyclic Antidepress Ur Phencyclidine Scrn Ur Amphetamines Screen U Methamphetamines Scrn Ur MDMA Scrn (Ecstasy) U Benzodiazepines Scrn Urine Cocaine Screen U Marijuana (THC) Screen Ethyl Alcohol Discharge Plan Discharge Plan Patient Disposition: Home Discharge comment: d/c after ECHO Discharge Med Rec/Prescriptions Prescriptions: New atorvastatin 20 mg tablet 20 mg PO BEDTIME Qty: 30 RF: 0 aspirin 81 mg tablet,delayed release (DR/EC) 81 mg PO DAILY Qty: 30 RF: 0 Continued levothyroxine 100 mcg Tablet 100 mcg PO DAILY RF: 0 famotidine [Pepcid] 20 mg Tablet 20 mg PO BEDTIME RF: 0 folic acid 1 mg Tablet 2 mg PO DAILY RF: 0 progesterone micronized 100 mg Capsule 100 mg PO QPM RF: 0 bupropion HCl 300 mg Tablet Extended Release 24 Hr 300 mg PO QPM RF: 0 estradiol 0.025 mg/24 hr patch weekly 1 patch topical WEEKLY RF: 0 Follow up/Referrals: José Miguel Diego MD [Primary Care Provider] - Provider Discharge Instructions Diet: Diet as Tolerated Discharge Data Primary Care Provider: Johnathon,José Miguel L Attending Provider: Xiang Frances Admit Date/Time: 01/31/19 02:38 Quality VTE Deep Vein Thrombosis/Pulmonary Embolism Present on Admission: No
--- NOTE | 2019-01-31 14:34 | PC.NURSE ---
Day shift: Pt left unit viaWC to private car driven by spouse. DELINQUENT ACCOUNT CLERK Ese took Pt out. Paperwork signed and all questions answered. Pt has all personal belongings and sent scrips electronic to [facility] here in [place].
--- NOTE | 2019-01-31 16:11 | CM.DANOTE ---
Discharge Planning/Care Management DCP: assessment: case received, EMR reviewed. Discussed in Team Rounds this morning. Pt is a 68 year old female who admitted early this mornin to care of hospitalist team. Payer : Medicare [facility] P[facility]: Dr. Diego. Pt and her live on [place]. PT was ordered as well as an MRI. Dr. Mane stated that pt would likely d/c later today if she did well and MRI was -. PT did clear pt for home setting. Dr. Mane put in a d/c order. Went to check in with pt. [place]30 with no d/c needs noted by the care team members. Advanced directive, confirm from FAMILY Start: 01/31/19 04:04 Freq: Q24H Status: Discharge Protocol: Document 01/31/19 10:06 YAD (Rec: 01/31/19 10:07 YAD [id number]) Advance Directive, confirm on record Time 10:06 Person contacted patient Copy received No CM Discharge Assessment Start: 01/31/19 16:10 Freq: Status: Active Protocol: Document 01/31/19 16:10 ITV (Rec: 01/31/19 16:11 ITV [id number]) Discharge Planning Assessment Advance Directives? Yes History Provided By Medical Record Prior Living Arrangements House Household Members spouse Discharge Plan Home Review Status In Process
--- NOTE | 2019-02-01 13:23 | ST.IPIE ---
Care Team Visit Care Team Role Provider Type José Miguel Diego MD Primary Care Provider Physician Specialty: Family Practice Address: [address] [place] [address], [id number] Email: Matt Oh DO Emergency Provider Physician Specialty: Emergency Medicine Address: [address] [place] [address], [id number] Email: 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 The patient is admitted to the hospital related to an atypical presentation of her previous existing BPPV with equivocal neurological findings and rule out TIA. Her brain MRI stroke protocol did not reveal any acute intracranial process. 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 She has moderate periventricular and subcortical white matter chronic microvascular ischemic changes. Subjective Observations The pt was awake, lying in bed with her breakfast tray in room. She reported occasional coughing with oral intake, a bit more frequently than she thought normal. She also reported recent (~1 mo) word finding difficulties and foggy brain, which she suspected was a side effect of a new medication. Evaluation Liquids Trialed Thin Solids Trialed Dysphagia Mechanical Mechanical Soft Regular Administration Type Cup Consecutive Sips Self-Feeding Oral Impairment WNL Oral Strategies Upright at 90 degrees Oral Phase Comments Oral Peripheral Exam: All structures WNL of strength, coordination and ROM. Pt has natural dentition in good condition. Oral Phase: WNL Pharyngeal Impairment WFL Pharyngeal Strategies Sitting Upright (90 deg) Pharyngeal Phase Comments No overt s/sx of aspiration were observed with all trials. Pt was able to self-feed and had no complaints with intake of breakfast. Findings Impressions Swallow function appears to be WFL. Screening of speech and language performed. Pt was 100 % intelligible with occasional slowness in conversation. No WFD observed in convergent and divergent naming tasks. Pt answered complex yes/no questions with 100% accuracy. Language in conversation was appropriate. The pt appears to be functioning with both swallow and speech/language within normal/functional limits. Further evaluation is recommended to fully assess skills as related to the pt's complaints. Diet Recommendations Liquids Order Thin Diet Order Regular Medication Recommendations As Tolerated Aspiration Precautions Recommended Precautions Upright at 90 Degrees Small Bites/Sips Treatment Plan Placement Recommendations after Home Discharge Outpatient Therapy Appropriate for Therapy Yes Therapy Recommendations Recommend follow up with outpatient therapy after hospital discharge for more thorough evaluation, given the pt's complaints.
--- NOTE | 2019-02-10 11:00 | PC.NURSE ---
Late entry: NS stopped 01/31/19 0936
== END 2019-01-31 14:35 | disposition home or self-care (01) ==
LOC: ED 01:37 → AC 02:40
PROVIDERS: Admitting Provider Nurse Practitioner Adult Health; Emergency Provider Emergency Medicine; PCP Family Medicine; Visit Provider Nurse Practitioner Adult Health
DX: R42 Dizziness and giddiness (principal); R27.0 Ataxia, unspecified; E89.0 Postprocedural hypothyroidism; M06.9 Rheumatoid arthritis, unspecified
CPT/HCPCS: 36415; 70450; 70548; 70553; 80048; 80061; 80305; 80320; 81003; 81015; 84443; 84484; 85025; 85610; 85730; 92610; 93005; 93010; 93306; 96360; 96361; 96372; 99284; 99285; G0378; A9579; J1650; J2405

== ENCOUNTER → 2023-01-22 11:56 | Outpatient (CLI) | payer MEDICARE, SELFPAY ==
[2019-01-31 03:45] VITALS: BMI 21.9
--- NOTE | 2023-01-22 11:57 | DI.MG.S_ITS ---
BILATERAL DIGITAL SCREENING MAMMOGRAM 3D/2D WITH CAD: 01/22/2023 CLINICAL: Routine screening. Baseline by default. Comparison is made to exams dated: 01/11/2014 mammogram, 12/27/2013 mammogram, 11/04/2012 mammogram, and 08/25/2011 mammogram - [facility]. Both breasts are heterogeneously dense, which may obscure small masses (category c / 51-75% glandular tissue). Current study was also evaluated with a Computer Aided Detection (CAD) system. There are benign calcifications in both breasts. No significant masses, calcifications, or other findings are seen in either breast. There has been no significant interval change. IMPRESSION: BENIGN There is no mammographic evidence of malignancy. A 1 year screening mammogram is recommended. Based on the Tyrer Cuzick model (a risk assessment model) the patient's lifetime risk is 6.6% and her 10 year risk is 5.0%. According to the ACR, ACS, and NCCN guidelines, an annual breast MRI exam along with mammogram is recommended if the patient's lifetime risk is 20% or greater. This exam was interpreted at Station ID: [id number]. NOTE: For mammograms, a report in lay terms will be sent to the patient. Approximately 15% of breast malignancies will not be visualized mammographically. In the management of a palpable breast mass, a negative mammogram must not discourage biopsy of a clinically suspicious lesion. Electronically Signed By: Kerno myles/jabari:01/22/2023 16:16:22 letter sent: Normal Exam ACR BI-RADS Category 2: Benign Finding(s) 3342F
--- NOTE | 2023-01-22 11:58 | DI.RAD.S_ITS ---
Bone Density Report Name: GABI LUNA Age: 72 Sex: Female Ethnicity: White Date of : 1950 Indication: osteopenia; parental hip fracture; secondary osteoporosis; Referring Provider: MELANIA PINA Study: Bone densitometry was performed. Exam Date: January 22, 2023 Accession number: [id number] Bone Density: Region BMD T-score Z-score Classification AP Spine(L1, L2, L3) 0.883 -1.2 1.0 Osteopenia Femoral Neck (Left) 0.581 -2.4 -0.5 Osteopenia Total Hip (Left) 0.703 -2.0 -0.3 Osteopenia Femoral Neck (Right) 0.608 -2.2 -0.2 Osteopenia Total Hip (Right) 0.717 -1.8 -0.2 Osteopenia Total Hip Mean 0.710 -1.9 -0.3 Osteopenia World Health Organization criteria for BMD impression classify patients as: Normal (T-score at or above -1.0), Osteopenia (T-score between -1.0 and -2.5), or Osteoporosis (T-score at or below -2.5). 10-year Fracture Risk(1): Major Osteoporotic Fracture 23% Hip Fracture 11% Reported Risk Factors: [place] (), Neck BMD=0.581, BMI=22.1, parental fracture, secondary osteoporosis (1) FRAX(R) Version 3.08. Fracture probability calculated for an untreated patient. Fracture probability may be lower if the patient has received treatment. Previous Exams: -- Region Exam Age BMD T-score BMD Change BMD Change Date g/cm2 vs Baseline vs Previous -- AP Spine (L1-L3) 01/22/2023 72 0.883 -1.2 -0.001 (-0.1%)# -0.001 (-0.1%)# 07/25/2010 60 0.884 -1.2 Total Hip(Left) 01/22/2023 72 0.703 -2.0 -0.013 (-1.9%)# -0.013 (-1.9%)# 07/25/2010 60 0.716 -1.9 Total Hip(Right) 01/22/2023 72 0.717 -1.8 0.015 (2.1%)# 0.015 (2.1%)# 07/25/2010 60 0.702 -2.0 -- *Denotes significance at 95% confidence level, LSC for AP Spine = 0.022 g/cm2, LSC for Total Hip = 0.027 g/cm2 # Denotes dissimilar scan types or analysis methods Impression: The patient has low bone mass, based on the Left Femoral Neck T-score. The patient has an estimated ten-year risk of hip fracture of 11% and an estimated ten-year risk of major fracture of 23%, based on the WHO FRAX algorithm. The patient has risk factors, including: parental hip fracture. No significant bone loss was observed. Discussion: BONE DENSITY IS LOW AT ONE OR MORE SKELETAL SITES. THE PATIENT'S BMD AND CLINICAL RISK FACTORS CONTRIBUTE TO THIS PATIENT'S HIGH RISK OF FRACTURE. This patient's lowest T-score is low at one or more skeletal sites. It meets the World Health Organization's (WHO) criteria for low bone mass (T-score between -1.0 and -2.5). The patient's 10-year risk of hip fracture and 10 year risk of a major osteoporotic fracture as calculated by FRAX exceeds the threshold where pharmacological therapy is recommended by the National Osteoporosis Foundation (NOF). However, all treatment decisions require clinical judgment and consideration of individual patient factors, including patient preferences, comorbidities, previous drug use, risk factors not captured in the FRAX model (e.g., frailty, falls, vitamin D deficiency, increased bone turnover, interval significant decline in bone density) and possible under or overestimation of fracture risk by FRAX. The patient should follow a healthful lifestyle (good nutrition with adequate calcium and vitamin D, and appropriate weight-bearing exercise). Follow-Up: Consider a repeat BMD and Vertebral Fracture Assessment (VFA) exam in 2 years or sooner if medically necessary, to reassess this patient's status. Reported by: STARLA JARVIS M.D. on 01/22/2023 12:39:00 PM.
== END ==
PROVIDERS: PCP Family Medicine; Referring Provider Family Medicine; Visit Provider Family Medicine
DX: Z12.31 Encounter for screening mammogram for malignant neoplasm of breast (principal); M81.0 Age-related osteoporosis without current pathological fracture; Z78.0 Asymptomatic menopausal state; Z79.83 Long term (current) use of bisphosphonates; Z92.23 Personal history of estrogen therapy; Z85.850 Personal history of malignant neoplasm of thyroid
CPT/HCPCS: 77063; 77067; 77080

== ENCOUNTER → 2024-05-18 14:40 | Outpatient (CLI) | payer MEDICARE, SELFPAY ==
[2019-01-31 03:45] VITALS: BMI 21.9
--- NOTE | 2024-05-18 14:41 | DI.MG.S_ITS ---
BILATERAL DIGITAL SCREENING MAMMOGRAM 3D/2D WITH CAD: 05/18/2024 CLINICAL: Routine screening. Comparison is made to exam dated: 01/22/2023 mammogram - [facility]. The breasts are heterogeneously dense, which may obscure small masses (category c / 51-75% glandular tissue). Current study was also evaluated with a Computer Aided Detection (CAD) system. No significant masses, calcifications, or other findings are seen in either breast. There has been no significant interval change. IMPRESSION: NEGATIVE There is no mammographic evidence of malignancy. A 1 year screening mammogram is recommended. Based on the Tyrer Cuzick model (a risk assessment model) the patient's lifetime risk is 6.3% and her 10 year risk is 5.1%. According to the ACR, ACS, and NCCN guidelines, an annual breast MRI exam along with mammogram is recommended if the patient's lifetime risk is 20% or greater. This exam was interpreted at Station ID: [id number]. NOTE: For mammograms, a report in lay terms will be sent to the patient. Approximately 15% of breast malignancies will not be visualized mammographically. In the management of a palpable breast mass, a negative mammogram must not discourage biopsy of a clinically suspicious lesion. Electronically Signed By: Ewa Soliman M.D., Ph.D. [email or web address]/jabari:05/18/2024 16:20:44 letter sent: Normal Exam ACR BI-RADS Category 1: Negative
== END ==
PROVIDERS: PCP Family Medicine; Referring Provider Family Medicine; Visit Provider Family Medicine
DX: Z12.31 Encounter for screening mammogram for malignant neoplasm of breast (principal); R92.333 Mammographic heterogeneous density, bilateral breasts
CPT/HCPCS: 77063; 77067

== ENCOUNTER → 2025-05-19 11:14 | Outpatient (CLI) | payer MEDICARE, SELFPAY ==
[2019-01-31 03:45] VITALS: BMI 21.9
--- NOTE | 2025-05-19 11:16 | DI.MG.S_ITS ---
MM screening mammo BI: 05/19/2025. BI-RADS: 1 CLINICAL: 74-year old female for bilateral screening mammogram. Tyrer-Cuzick lifetime risk of 3.6%. No personal or first-degree family history of breast cancer. PRIOR EXAMS 05/18/2024, 01/22/2023. MAMMOGRAPHY TECHNIQUE: 2D and 3D (tomosynthesis) digital mammographic views obtained, with additional images as needed for full coverage. Current study was also evaluated with a Computer Aided Detection (CAD) system. DENSITY C. The breasts are heterogeneously dense, which may obscure small masses. MAMMOGRAPHY FINDINGS Bilateral: No suspicious mass, asymmetry, microcalcification, or other abnormality seen. IMPRESSION: * No evidence of malignancy. RECOMMENDATIONS Bilateral * Annual screening mammography. OVERALL ASSESSMENT CATEGORY BI-RADS-1: Negative. The [employer] recommends annual screening mammography beginning at age 40 for women with average risk of breast cancer. ELECTRONICALLY SIGNED: Nasra Damon M.D. on 05/21/2025 at 12:22:49 AM PT Interpreting Station ID: [id number]
== END ==
PROVIDERS: PCP Family Medicine; Referring Provider Family Medicine; Visit Provider Family Medicine
DX: Z12.31 Encounter for screening mammogram for malignant neoplasm of breast (principal); R92.333 Mammographic heterogeneous density, bilateral breasts
CPT/HCPCS: 77063; 77067